=== PATIENT | male | born 1990 | race Caucasian/White ===

== ENCOUNTER 2018-07-11 16:49 | Emergency (ER) | payer BC ==
--- NOTE | 2018-07-11 17:36 | EDPHY ---
H & P Stated Complaint: Feels like a "panic attack". Heart palpiations. Time Seen by Provider: 07/11/18 16:58 HPI/ROS: CHIEF COMPLAINT: Feel as if something is wrong, rapid heart rate HISTORY OF PRESENT ILLNESS: This is a27 year old male with history of occasional panic attacks. He present today after experiencing the feeling that "something is really wrong". He felt as if his diaphragm was spasming, felt panicky, and tired. He does not think that he was short of breath or hyperventilating. Most of these feelings have resolved, but he remains worried. No recent fever, cough, SOB, chest pain, vomiting, diarrhea. REVIEW OF SYSTEMS: A ten system review of systems was performed and is negative with the exception of the items mentioned in the HPI. Past medical history: Occasional panic attacks Past surgical history: Tonsillectomy Social history: He works at [employer]. Does not smoke cigarettes, but uses nicotine lozenges. Weekend alcohol use. General Appearance: Alert. Vital signs reviewed. Eyes: Pupils equal and round, no conjunctival injection, no discharge. Anicteric. ENT, Mouth: Mucous membranes are moist, no oropharyngeal erythema or edema. Neck: No lymphadenopathy, supple. Respiratory: Lungs are clear to auscultation; no wheezes, rales, or rhonchi. Cardiovascular: Regular rate and rhythm; no murmur, rub, or gallop. Gastrointestinal: Abdomen is soft and nontender, no masses or organomegaly, bowel sounds normal. Skin: Warm and dry, no rashes on exposed skin, normal color. Back: Nontender to palpation over the thoracolumbar spine. No CVAT. Extremities: No lower extremity edema, no calf tenderness or swelling. Neurological: Alert and oriented. Moving all four extremities easily and equally. Psychiatric: Normal affect. - Personal History Current Tetanus Diphtheria and Acellular Pertussis (TDAP): Yes - Medical/Surgical History Hx Asthma: No Hx Chronic Respiratory Disease: No Hx Diabetes: No Hx Cardiac Disease: No Hx Renal Disease: No Hx Cirrhosis: No Hx Alcoholism: No Hx HIV/AIDS: No Hx Splenectomy or Spleen Trauma: No Other PMH: Panic attacks. - Social History Smoking Status: Never smoked Constitutional: Initial Vital Signs Temperature (C) 36.4 C 07/11/18 16:49 Heart Rate 123 H 07/11/18 16:49 Respiratory Rate 22 H 07/11/18 16:49 Blood Pressure 141/87 H 07/11/18 16:49 O2 Sat (%) 99 07/11/18 16:49 O2 Delivery Mode Room Air Allergies/Adverse Reactions: No Known Allergies Allergy (Unverified 07/11/18 16:54) Home Medications: Medication Instructions Recorded NK [No Known Home Meds] 07/11/18 Medical Decision Making ED Course/Re-evaluation: Signs/symptoms consistent with anxiety/panic attack--resolved. Initial abnormal vital signs improved in ED. BP 110/55 at DC, HR 74, RR 16 with O2 sat 96. He was observed in ED with no problems arising. Lungs CTA. Reassurance provided,local referral to PCP. I think that he experienced a panic attack. There is nothing to suggest pulmonary infection, ACS, arrhythmia, intoxicants. Departure - Departure Disposition: Home, Routine, Self-Care Clinical Impression: Panic attack Condition: Good Instructions: Panic Attack (ED) Additional Instructions: As we discussed, I do not think that you are in any danger. I am giving her over for referral to a primary care doctor, Dr. Trinidad. Referrals: Myla Trinidad DO [Doctor of Osteopathy] - As per Instructions
[2018-07-11 17:47] VITALS: BP 110/55
== END 2018-07-11 17:47 | disposition home or self-care (01) ==
DX: F41.0 Panic disorder [episodic paroxysmal anxiety] (principal)